=== PATIENT | male | born 1975 | race Caucasian/White ===

== ENCOUNTER 2018-04-16 20:23 | Emergency (ER) | payer OTHER ==
[~2018-04-16] VITALS: Ht 167.6 cm; Wt 99.8 kg
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
[2018-04-16] MEDS ORDERED: PERCOCET 5-3251 EACH PO (21:35)
[2018-04-16] MEDS ORDERED: METOPROLOL SUCC50 M2 PO (21:42)
[2018-04-16 21:50] VITALS: BP 140/98
== END 2018-04-16 21:59 ==
LOC: ERH 20:23
DX: T23.242A Burn of second degree of multiple left fingers (nail), including thumb, initial encounter (principal); X17.XXXA Contact with hot engines, machinery and tools, initial encounter; Y92.9 Unspecified place or not applicable; Y93.89 Activity, other specified
CPT/HCPCS: 96374